=== PATIENT | male | born 1990 | race Two or more races ===

== ENCOUNTER 2017-09-27 00:15 | Emergency (ER) | payer SELFPAY ==
[2017-09-27 01:11] LABS: ABSOLUTE BASOPHILS # (AUTO) 0.1 10^3/uL (0.0-0.2); ABSOLUTE EOSINOPHILS # (AUTO) 0.2 10^3/uL (0.0-0.6); ABSOLUTE LYMPHOCYTES (AUTO) 2.9 10^3/uL (0.5-4.7); ABSOLUTE MONOCYTES (AUTO) 0.6 10^3/uL (0.1-1.4); ABSOLUTE NEUT (AUTO) 3.4 10^3/uL (1.7-8.2); EOSINOPHILS % (AUTO) 3.2 % (0-6); HEMATOCRIT 46.3 % (37.9-51.0); HEMOGLOBIN 15.8 g/dL (13.5-17.0); LYMPHOCYTES % (AUTO) 40.2 % (13-45); MEAN CORPUSCULAR HEMOGLOBIN 29.6 pg (27.0-33.4); MEAN CORPUSCULAR HGB CONC 34.2 g/dL (32.0-36.0); MEAN CORPUSCULAR VOLUME 87 fl (80-97); MONOCYTES % (AUTO) 8.7 % (3-13); PLATELET COUNT 232 10^3/uL (150-450); RED BLOOD COUNT 5.34 10^6/uL (4.35-5.55); RED CELL DISTRIBUTION WIDTH 13.2 % (11.5-14.0); SEGMENTED NEUTROPHILS % (AUTO) 46.9 % (42-78); TOTAL CELLS COUNTED % (AUTO) 100 %; WHITE BLOOD COUNT 7.3 10^3/uL (4.0-10.5)
[2017-09-27 01:16] LABS: APPEARANCE,URINE CLEAR; BILIRUBIN,URINE NEGATIVE (NEGATIVE); COLOR,URINE STRAW; GLUCOSE, URINE NEGATIVE (NEGATIVE); KETONES,URINE NEGATIVE (NEGATIVE); LEUKOCYTE ESTERASE,URINE NEGATIVE (NEGATIVE); NITRITE,URINE NEGATIVE (NEGATIVE); PROTEIN,URINE NEGATIVE (NEGATIVE); URINE SPECIFIC GRAVITY 1.006; UROBILINOGEN,URINE NEGATIVE mg/dL (<2.0)
[2017-09-27 01:27] LABS: ALANINE AMINOTRANSFERASE 25 U/L (21-72); ALBUMIN 4.8 g/dL (3.5-5.0); ALKALINE PHOSPHATASE 75 U/L (38-126); ANION GAP 15 (5-19); ASPARTATE AMINO TRANSFERASE 31 U/L (17-59); BILIRUBIN,DIRECT 0.4 mg/dL (0.0-0.4); BILIRUBIN,TOTAL 0.5 mg/dL (0.2-1.3); BLOOD UREA NITROGEN 17 mg/dL (7-20); CALCIUM 9.7 mg/dL (8.4-10.2); CARBON DIOXIDE 27 mmol/L (22-30); CHLORIDE 105 mmol/L (98-107); GLUCOSE 104 mg/dL (75-110); POTASSIUM 3.7 mmol/L (3.6-5.0); SODIUM 146.7 mmol/L (137-145); TOTAL PROTEIN 7.5 g/dL (6.3-8.2)
[2017-09-27] MEDS ORDERED: PROMETHAZINE HCL 25 MG TABLET PO ONE (03:42)
[2017-09-27] MEDS ORDERED: SUCRALFATE 1 GM TABLET PO ONE (03:42)
[2017-09-27] MEDS ORDERED: FAMOTIDINE 20 MG TABLET PO ONE (03:42)
--- NOTE | 2017-09-27 03:44 | ER Document Report ---
ED GI/ - General Chief Complaint: Abdominal Pain Stated Complaint: ABDOMINAL PAIN Time Seen by Provider: 09/27/17 03:34 Notes: Patient is a 27-year-old male that comes emergency department for chief complaint of pain in his upper abdomen on the left side. Pain started 3 days ago, worse with eating. He does feel some radiation of the pain in his left upper quadrant and around to his left back occasionally. He denies vomiting, fever, he states he had a normal bowel movement yesterday. He states that he was told in the past that he has gallstones, he has had no surgeries, he denies any medications. He does not smoke, he drinks occasionally , denies recreational drugs. Patient is Vietnamese-speaking. TRAVEL OUTSIDE OF THE [place] IN LAST 30 DAYS: No - Related Data Allergies/Adverse Reactions: No Known Allergies Allergy (Unverified 09/27/17 00:18) Past Medical History - General Information source: Patient - Social History Smoking Status: Current Some Day Smoker Frequency of alcohol use: Occasional Drug Abuse: None Lives with: Family Family History: Reviewed & Not Pertinent - Medical History Medical History: Negative Surgical Hx: Negative - Immunizations Immunizations up to date: Yes Hx Diphtheria, Pertussis, Tetanus Vaccination: Yes Review of Systems - Review of Systems Constitutional: No symptoms reported EENT: No symptoms reported Cardiovascular: No symptoms reported Respiratory: No symptoms reported Gastrointestinal: See HPI Genitourinary: No symptoms reported Male Genitourinary: No symptoms reported Musculoskeletal: No symptoms reported Skin: No symptoms reported Hematologic/Lymphatic: No symptoms reported Neurological/Psychological: No symptoms reported Physical Exam - Vital signs Vitals: Temp Pulse Resp BP Pulse Ox 98.5 F 68 16 147/93 H 100 09/27/17 00:31 09/27/17 00:31 09/27/17 00:31 09/27/17 00:31 09/27/17 00:31 - Notes Notes: GENERAL: Alert, interacts well. No acute distress. HEAD: Normocephalic, atraumatic. EYES: Pupils equal, round, and reactive to light. Extraocular movements intact. ENT: Oral mucosa moist, tongue midline. NECK: Full range of motion. Supple. Trachea midline. LUNGS: Clear to auscultation bilaterally, no wheezes, rales, or rhonchi. No respiratory distress. HEART: Regular rate and rhythm. No murmur ABDOMEN: Mild tenderness to the left upper quadrant, nontender epigastric and right upper quadrant, lower abdomen is unremarkable.. Non-distended. Bowel sounds present in all 4 quadrants. EXTREMITIES: Moves all 4 extremities spontaneously. No edema, normal radial and dorsalis pedis pulses bilaterally. No cyanosis. BACK: no cervical, thoracic, lumbar midline tenderness. No saddle anesthesia, normal distal neurovascular exam. NEUROLOGICAL: Alert and oriented x3. Normal speech. [cranial nerves II through XII grossly intact]. PSYCH: Normal affect, normal mood. SKIN: Warm, dry, normal turgor. No rashes or lesions noted. Course - Re-evaluation Re-evalutation: CBC unremarkable, chemistry unremarkable including liver function tests and bilirubin, lipase is not elevated. Urine unremarkable. On palpation of the abdomen patient has left upper quadrant tenderness, symptoms resolved after Carafate, Phenergan, Pepcid. Suspect this is gastritis. Low suspicion of acute abdomen. Discussed details with patient, medications, recommendations, follow-up, and return precautions. Patient's nurses Shanna speaks fluent Vietnamese , patient declined different park interpreter. Patient states satisfaction and agreement. - Vital Signs Vital signs: Temp Pulse Resp BP Pulse Ox 97.9 F 69 18 128/82 H 100 09/27/17 05:11 09/27/17 05:11 09/27/17 05:11 09/27/17 05:11 09/27/17 05:11 - Laboratory Result Diagrams: 09/27/17 00:45 09/27/17 00:45 Laboratory results interpreted by me: 09/27/17 00:45 Sodium 146.7 H Discharge - Discharge Clinical Impression: Left upper quadrant pain Condition: Stable Disposition: HOME, SELF-CARE Additional Instructions: Linda anlisis de sravani y orina fueron normales. Creo que la razn de nielsen dolor es la inflamacin en el tracto gastrointestinal superior (moe bolsa del est wes inflamada). Essence las prescripciones Por el momento, evite el alcohol, el tabaco, la cafena, los antiinflamatorios no esteroideos (ibuprofeno, naproxeno , aspirina, polvo de BC) y los alimentos picantes. Puede renee Tylenol, tums, rolaids, etc. Christofer un seguimiento con la referencia de la clnica (llmelos para verlos). Regrese a la kaden de emergencias si est peor: vmitos, heces negras, vmitos, fiebre, dolor intenso o cualquier otro sntoma preocupante. Prescriptions: Famotidine [Pepcid 20 mg Tablet] 20 mg PO BID #20 tablet Promethazine HCl [Phenergan 25 mg Tablet] 1 tab PO Q6H PRN #20 tablet PRN Reason: Sucralfate [Carafate 1 gm Tablet] 1 gm PO QID #20 tablet Referrals: [facility] [Provider Group] - Follow up in 1 week
[2017-09-27 05:14] VITALS: BP 128/82
== END 2017-09-27 05:10 | disposition home or self-care (01) ==
LOC: EDBD 00:15 → ER 00:15
DX: R10.12 Left upper quadrant pain (principal); M54.9 Dorsalgia, unspecified; F17.200 Nicotine dependence, unspecified, uncomplicated
CPT/HCPCS: 36415; 80053; 81001; 83690; 85025; 99284

== ENCOUNTER 2017-09-28 14:10 | Emergency (ER) | payer SELFPAY ==
[2017-09-28] MEDS ORDERED: MAG HYDROX/AL HYDROX/SIMETH SUSP 30 ML UDCUP PO ONE (15:26)
[2017-09-28] MEDS ORDERED: LIDOCAINE 2% VISCOUS SOLN 20 ML UDCUP PO ONE (15:26)
--- NOTE | 2017-09-28 15:29 | ER Document Report ---
ED Medical Screen (RME) - General Chief Complaint: Black/Tarry Stools Stated Complaint: STOOL ISSUES Time Seen by Provider: 09/28/17 15:20 Notes: RAPID MEDICAL EVALUATION DISCLOSURE I have seen this patient as part of a Rapid Medical Evaluation and, if applicable, placed any initially appropriate orders. The patient will be seen and fully evaluated, including a full history and physical exam, by a provider ( in Main ED or Fast Track) when a room becomes available. 26-year-old male here with complaints of acute on chronic abdominal pain. The pain has been ongoing for the past 3 years but states it started back up about 3 days ago in the left upper abdomen with associated nausea but no vomiting. He is also had some diarrhea and black stools today. He was seen here recently and blood work was performed. He was told to return if he started to have bloody stools and this is the reason he is back today. He has been taking the Pepcid and Carafate he was prescribed and states it has been helping "only a little bit". He is never had an endoscopy in the past. EXAM Mild LUQ TTP Alert oriented and conversational TRAVEL OUTSIDE OF THE [place] IN LAST 30 DAYS: No - Related Data Allergies/Adverse Reactions: No Known Allergies Allergy (Unverified 09/27/17 00:18) Past Medical History Renal/ Medical History: Denies: Hx Peritoneal Dialysis - Immunizations Immunizations up to date: Yes Hx Diphtheria, Pertussis, Tetanus Vaccination: Yes Physical Exam - Vital signs Vitals: Temp Pulse Resp BP Pulse Ox 98.5 F 70 24 H 136/77 H 99 09/28/17 14:15 09/28/17 14:15 09/28/17 14:15 09/28/17 14:15 09/28/17 14:15 Course - Vital Signs Vital signs: Temp Pulse Resp BP Pulse Ox 98.5 F 70 24 H 136/77 H 99 09/28/17 14:15 09/28/17 14:15 09/28/17 14:15 09/28/17 14:15 09/28/17 14:15
[2017-09-28 16:29] LABS: ABSOLUTE BASOPHILS # (AUTO) 0.1 10^3/uL (0.0-0.2); ABSOLUTE EOSINOPHILS # (AUTO) 0.2 10^3/uL (0.0-0.6); ABSOLUTE LYMPHOCYTES (AUTO) 2.7 10^3/uL (0.5-4.7); ABSOLUTE MONOCYTES (AUTO) 0.5 10^3/uL (0.1-1.4); ABSOLUTE NEUT (AUTO) 3.2 10^3/uL (1.7-8.2); BASOPHILS % (AUTO) 1.1 % (0-2); EOSINOPHILS % (AUTO) 2.4 % (0-6); HEMATOCRIT 45.4 % (37.9-51.0); HEMOGLOBIN 15.8 g/dL (13.5-17.0); LYMPHOCYTES % (AUTO) 40.8 % (13-45); MEAN CORPUSCULAR HEMOGLOBIN 29.9 pg (27.0-33.4); MEAN CORPUSCULAR HGB CONC 34.8 g/dL (32.0-36.0); MEAN CORPUSCULAR VOLUME 86 fl (80-97); MONOCYTES % (AUTO) 7.6 % (3-13); PLATELET COUNT 250 10^3/uL (150-450); RED BLOOD COUNT 5.28 10^6/uL (4.35-5.55); RED CELL DISTRIBUTION WIDTH 13.3 % (11.5-14.0); SEGMENTED NEUTROPHILS % (AUTO) 48.1 % (42-78); TOTAL CELLS COUNTED % (AUTO) 100 %; WHITE BLOOD COUNT 6.6 10^3/uL (4.0-10.5)
--- NOTE | 2017-09-28 16:39 | RADIOLOGY REPORT (SQ) ---
EXAM DESCRIPTION: CT ABD/PELVIS WITH IV ONLY COMPLETED DATE/TIME: 09/28/2017 4:20 pm REASON FOR STUDY: LUQ pain w black stools; eval colitis divertic COMPARISON: None. TECHNIQUE: CT scan of the abdomen and pelvis performed using helical scanning technique with dynamic intravenous contrast injection. No oral contrast. Images reviewed with lung, soft tissue, and bone windows. Reconstructed coronal and sagittal MPR images reviewed. Delayed images for evaluation of the urinary system also acquired. All images stored on PACS. All CT scanners at this facility use dose modulation, iterative reconstruction, and/or weight based d osing when appropriate to reduce radiation dose to as low as reasonably achievable (ALARA). [facility]: Dose Right [facility]: CareDose [facility]: Dose Right [facility]: Teradose 4D [facility]: [employer] CONTRAST TYPE AND DOSE: contrast/concentration: Isovue 370.00 mg/ml; Total Contrast Delivered: 81.0 ml; Total Saline Delivered: 68.0 ml RENAL FUNCTION: None required. The patient is less than 50 years old. RADIATION DOSE: CT Rad equipment meets quality standard of care and radiation dose reduction techniq ues were employed. CTDIvol: 5.6 - 7.9 mGy. DLP: 756 mGy-cm.. LIMITATIONS: None. FINDINGS: LOWER CHEST: No significant findings. No nodules or infiltrates. LIVER: Normal size. No masses. No dilated ducts. SPLEEN: Normal size. No focal lesions. PANCREAS: No masses. No significant calcifications. No adjacent inflammation or peripancreatic fluid collections. Pancreatic duct not dilated. GALLBLADDER: There is several small somewhat linear hypoattenuating structures in the gallbladder. ADRENAL GLANDS: No significant masses or asymmetry. RIGHT KIDNEY AND URETER: No solid masses. No significant calcifications. No hydronephrosis or hyd roureter. LEFT KIDNEY AND URETER: No solid masses. No significant calcifications. No hydronephrosis or hydr oureter. AORTA AND VESSELS: No aneurysm. No dissection. Renal arteries, SMA, celiac without stenosis. RETROPERITONEUM: No retroperitoneal adenopathy, hemorrhage or masses. BOWEL AND PERITONEAL CAVITY: No masses or inflammatory changes. No free fluid or peritoneal masses. APPENDIX: Normal. PELVIS: No mass. No free fluid. Normal bladder. ABDOMINAL WALL: No masses. No hernias. BONES: No significant or acute findings. OTHER: No other significant finding. IMPRESSION: Small somewhat linear hypoattenuating structures in the gallbladder. Possible cholester ol stones. Is there any clinical evidence of parasites? TECHNICAL DOCUMENTATION: JOB ID: [id number] Quality ID # [id number]: Final reports with documentation of one or more dose reduction techniques (e.g., Au tomated exposure control, adjustment of the mA and/or kV according to patient size, use of iterative reconstruction technique) 2010 [employer]- All Rights Reserved Reading location - IP/workstation name: [email or web address]
[2017-09-28 16:58] LABS: ALANINE AMINOTRANSFERASE 35 U/L (21-72); ALBUMIN 4.8 g/dL (3.5-5.0); ALKALINE PHOSPHATASE 72 U/L (38-126); ANION GAP 12 (5-19); ASPARTATE AMINO TRANSFERASE 31 U/L (17-59); BILIRUBIN,DIRECT 0.4 mg/dL (0.0-0.4); BILIRUBIN,TOTAL 0.6 mg/dL (0.2-1.3); BLOOD UREA NITROGEN 16 mg/dL (7-20); CALCIUM 9.8 mg/dL (8.4-10.2); CARBON DIOXIDE 31 mmol/L (22-30); CHLORIDE 100 mmol/L (98-107); GLUCOSE 95 mg/dL (75-110); LIPASE 151.4 U/L (23-300); POTASSIUM 4.3 mmol/L (3.6-5.0); TOTAL PROTEIN 7.8 g/dL (6.3-8.2)
--- NOTE | 2017-09-28 17:09 | ER Document Report ---
ED General - General Chief Complaint: Black/Tarry Stools Stated Complaint: STOOL ISSUES Time Seen by Provider: 09/28/17 15:20 Mode of Arrival: Ambulatory Information source: Patient Notes: 26-year-old male presents to the emergency room complaints of chronic abdominal pain. Patient states that the pain has been going on for last 3 years. He describes the pain as an aching sensation in the left upper quadrant. No radiation. No alleviating or exacerbating factors. He has some associated nausea and constipation but denies any vomiting, diarrhea. Patient states that he was seen in the emergency department yesterday and was told to return if he was having bloody stools. Patient states that his stools have been black. He is currently taking Pepcid and Carafate. TRAVEL OUTSIDE OF THE [place] IN LAST 30 DAYS: No - HPI Onset: Other - 3 years Onset/Duration: Intermittent Quality of pain: Achy Severity: Mild Associated symptoms: Nausea Exacerbated by: Denies Relieved by: Denies Similar symptoms previously: Yes Recently seen / treated by doctor: Yes - Related Data Allergies/Adverse Reactions: No Known Allergies Allergy (Unverified 09/27/17 00:18) Past Medical History - Social History Smoking Status: Current Some Day Smoker Family History: Reviewed & Not Pertinent Patient has suicidal ideation: No Patient has homicidal ideation: No Renal/ Medical History: Denies: Hx Peritoneal Dialysis - Immunizations Immunizations up to date: Yes Hx Diphtheria, Pertussis, Tetanus Vaccination: Yes Review of Systems - Review of Systems Constitutional: No symptoms reported EENT: No symptoms reported Cardiovascular: No symptoms reported Respiratory: No symptoms reported Gastrointestinal: Nausea, Constipation, Rectal bleeding Genitourinary: No symptoms reported Male Genitourinary: No symptoms reported Musculoskeletal: No symptoms reported Neurological/Psychological: No symptoms reported -: Yes All other systems reviewed and negative Physical Exam - Vital signs Vitals: Temp Pulse Resp BP Pulse Ox 98.5 F 70 24 H 136/77 H 99 09/28/17 14:15 09/28/17 14:15 09/28/17 14:15 09/28/17 14:15 09/28/17 14:15 Interpretation: Normal - General General appearance: Appears well, Alert Notes: PHYSICAL EXAMINATION: GENERAL: Well-appearing, well-nourished and in no acute distress. HEAD: Atraumatic, normocephalic. EYES: Pupils equal round and reactive to light, extraocular movements intact, sclera anicteric, conjunctiva are normal. ENT: Nares patent, oropharynx clear without exudates. Moist mucous membranes. NECK: Normal range of motion, supple without lymphadenopathy LUNGS: Breath sounds clear to auscultation bilaterally and equal. No wheezes rales or rhonchi. HEART: Regular rate and rhythm without murmurs ABDOMEN: Soft, tenderness to palpation in the LUQ. No guarding, no rebound. No masses appreciated. Musculoskeletal: Normal range of motion, no pitting or edema. No cyanosis. NEUROLOGICAL: Cranial nerves grossly intact. Normal speech, normal gait. Normal sensory, motor exams PSYCH: Normal mood, normal affect. SKIN: Warm, Dry, normal turgor, no rashes or lesions noted. Course - Re-evaluation Re-evalutation: 09/28/17 17:09 Ct abd/pelvis done. Possible gallstones appreciated. Patient is not having pain in the RUQ. Only LUQ. No epigastric tenderness to palpation. 09/28/17 17:52 Hemoglobin normal. No occult blood in stool. I will refer patient to GI. Patient instructed to take medication prescribed as directed, to follow up with GI or PCP this week, and to return for worsening symptoms. Patient is agreeable with the plan of care. - Vital Signs Vital signs: Temp Pulse Resp BP Pulse Ox 98.5 F 70 24 H 136/77 H 99 09/28/17 14:15 09/28/17 14:15 09/28/17 14:15 09/28/17 14:15 09/28/17 14:15 - Laboratory Result Diagrams: 09/28/17 15:50 09/28/17 15:50 Laboratory results interpreted by me: 09/28/17 15:50 Carbon Dioxide 31 H Discharge - Discharge Clinical Impression: LUQ abdominal pain Condition: Good Disposition: HOME, SELF-CARE Instructions: Abdominal Pain ([facility]) Referrals: VICKI DE DIOS MD [ACTIVE STAFF] - Follow up as needed ALDAIR PARK MD [COMMUNITY BASED STAFF] - Follow up as needed
[2017-09-28 18:18] VITALS: BP 155/79
== END 2017-09-28 18:18 | disposition home or self-care (01) ==
LOC: ER 14:10
DX: K59.00 Constipation, unspecified (principal); R10.12 Left upper quadrant pain; G89.29 Other chronic pain; R11.0 Nausea; K62.5 Hemorrhage of anus and rectum; F17.200 Nicotine dependence, unspecified, uncomplicated
CPT/HCPCS: 99285; 36415; 83690; 85025; 82272; 80053; 74177; J3490